=== PATIENT | female | born 1935 | race Caucasian/White ===

== ENCOUNTER 2017-09-11 00:48 | Emergency (ER) | payer OTHER, MEDICAID ==
[~2017-09-11] VITALS: Ht 170.2 cm; Wt 77.1 kg
[~2017-09-11 00:48] MED LIST: ASP81EC PO; MEGE40SU2 PO; SERT-138 PO
[2017-09-11 05:45] VITALS: BP 161/76
== END 2017-09-11 06:30 | disposition home or self-care (01) ==
LOC: ER 00:48 → EDUNIT# 00:48 → EDBD 00:48 → ER 06:30
DX: S39.012A Strain of muscle, fascia and tendon of lower back, initial encounter (principal); S53.402A Unspecified sprain of left elbow, initial encounter; M54.17 Radiculopathy, lumbosacral region; J45.909 Unspecified asthma, uncomplicated; R51 Headache; M19.90 Unspecified osteoarthritis, unspecified site; Z86.73 Personal history of transient ischemic attack (TIA), and cerebral infarction without residual deficits; Z88.6 Allergy status to analgesic agent; W19.XXXA Unspecified fall, initial encounter; Y93.89 Activity, other specified; Y99.8 Other external cause status; Y92.090 Kitchen in other non-institutional residence as the place of occurrence of the external cause
CPT/HCPCS: 70450; 72131; 73080; 93005

== ENCOUNTER 2017-11-10 10:27 | Emergency (ER) | payer OTHER, MEDICAID ==
[~2017-11-10] VITALS: Ht 162.6 cm; Wt 68.0 kg
[2017-11-10 11:02] LABS: Basophils # (auto) 0.1 uL; Basophils % (auto) 1.1 % (0.0-2.0); Eosinophils # (auto) 0.1 uL; Eosinophils % (auto) 1.7 % (0.0-7.0); Hemoglobin 11.8 g/dL (12.2-16.2); Lymphocytes # (auto) 0.8 uL; Lymphocytes % (auto) 16.7 % (10.0-50.0); Mean Corpuscular Hemoglobin 30.1 pg (28.0-32.0); Mean Corpuscular Hgb Conc. 33.8 g/dL (32.0-36.0); Mean Corpuscular Volume 89.2 fL (80.0-100.0); Mean Platelet Volume 7.6 fL (6.9-10.8); Monocytes # (auto) 0.5 uL; Monocytes % (auto) 9.3 % (0.0-12.0); Neutrophils # (auto) 3.6 uL; Neutrophils % (auto) 71.2 % (37.0-80.0); Platelet Count (auto) 177 10^3/uL (140-450); Red Cell Distribution Width 13.8 % (11.8-14.3); White Blood Cell 5.1 10^3/uL (4.4-10.8)
[2017-11-10 11:19] LABS: INR 0.97 (0.9-1.15); Partial Thromboplastin Time 21.6 sec (22.64-33.71); Prothrombin Time 10.6 sec (9.37-12.3)
[2017-11-10 11:30] LABS: Albumin 3.3 g/dL (3.4-5.0); Alkaline Phosphatase 59 U/L (45-117); Anion Gap 8 (5-15); Aspartate Aminotransferase 15 U/L (15-37); BUN/Creatinine Ratio 22.2; Bilirubin, Total 0.7 mg/dL (0.2-1.0); Blood Urea Nitrogen 24 mg/dL (7-18); Calcium 8.1 mg/dL (8.5-10.1); Carbon Dioxide 26 mmol/L (21-32); Chloride 106 mmol/L (98-107); GFR African American 63 mL/min; GFR Non-African American 52 mL/min; Glucose 88 mg/dL (74-106); Potassium 4.1 mmol/L (3.5-5.1); Sodium 140 mmol/L (136-145); Total Protein 6.7 g/dL (6.4-8.2)
[2017-11-10 15:07] VITALS: BP 136/89
== END 2017-11-10 16:07 | disposition home or self-care (01) ==
LOC: EDBD 10:27 → ER 10:27
DX: R42 Dizziness and giddiness (principal); D64.9 Anemia, unspecified; I48.91 Unspecified atrial fibrillation; M19.90 Unspecified osteoarthritis, unspecified site; J45.909 Unspecified asthma, uncomplicated; Z86.73 Personal history of transient ischemic attack (TIA), and cerebral infarction without residual deficits; Z90.710 Acquired absence of both cervix and uterus
CPT/HCPCS: 36415; 70450; 80053; 84484; 85025; 85610; 85730; 93005

== ENCOUNTER 2019-02-16 06:09 | Emergency (ER) | payer MEDICARE, MEDICAID ==
[~2019-02-16] VITALS: Ht 160 cm; Wt 64.9 kg
[~2019-02-16 06:09] MED LIST changes: -ASP81EC PO; -MEGE40SU2 PO
[2019-02-16] MEDS ORDERED: ACCU-CHEK COMFORT CURVE STRIP VI ONE (06:30)
[2019-02-16 07:37] LABS: Basophils # (auto) 0.1 uL; Basophils % (auto) 1.1 % (0.0-2.0); Eosinophils # (auto) 0.1 uL; Eosinophils % (auto) 1.8 % (0.0-7.0); Hematocrit 37.6 % (36.0-46.0); Hemoglobin 12.3 g/dL (12.2-16.2); Lymphocytes # (auto) 0.6 uL; Lymphocytes % (auto) 11.8 % (10.0-50.0); Mean Corpuscular Hemoglobin 29.3 pg (28.0-32.0); Mean Corpuscular Hgb Conc. 32.8 g/dL (32.0-36.0); Mean Corpuscular Volume 89.3 fL (80.0-100.0); Monocytes # (auto) 0.5 uL; Monocytes % (auto) 9.6 % (0.0-12.0); Neutrophils # (auto) 3.9 uL; Neutrophils % (auto) 75.7 % (37.0-80.0); Platelet Count (auto) 214 10^3/uL (140-450); Red Blood Cells 4.21 10^6/uL (4.0-5.20); Red Cell Distribution Width 13.9 % (11.8-14.3); White Blood Cell 5.2 10^3/uL (4.4-10.8)
[2019-02-16 07:57] LABS: Albumin 3.1 g/dL (3.4-5.0); Anion Gap 5 (5-15); Blood Urea Nitrogen 23 mg/dL (7-18); Calcium 8.3 mg/dL (8.5-10.1); Carbon Dioxide 27 mmol/L (21-32); Chloride 109 mmol/L (98-107); Glucose 81 mg/dL (74-106); Potassium 3.7 mmol/L (3.5-5.1); Sodium 141 mmol/L (136-145)
[2019-02-16 08:02] LABS: Alanine Aminotransferase 13 U/L (13-56); Alkaline Phosphatase 70 U/L (45-117); Aspartate Aminotransferase 17 U/L (15-37); BUN/Creatinine Ratio 22.5; Bilirubin, Total 0.5 mg/dL (0.2-1.0); GFR African American 67 mL/min; GFR Non-African American 55 mL/min; Total Protein 6.6 g/dL (6.4-8.2)
[2019-02-16 08:20] LABS: Urine WBC None Seen /hpf (0 - 5)
[2019-02-16 08:29] LABS: Urine Bacteria NONE SEEN /hpf (None Seen); Urine Blood Negative /uL (Negative); Urine Specific Gravity 1.007 (1.001-1.035)
[2019-02-16 08:44] LABS: Alcohol, Urine < 3.0 mg/dL (0-5); Amphetamine Screen, Urine NEGATIVE (NEGATIVE); Barbiturate Scree,Urine NEGATIVE (NEGATIVE); Benzodiazephine Screen, Urine NEGATIVE (NEGATIVE); Cannabinoid Screen, Urine NEGATIVE (NEGATIVE); Cocaine Screen, Urine NEGATIVE (NEGATIVE); Opiate Scree,Urine NEGATIVE (NEGATIVE); Phencyclidine Screen, Urine NEGATIVE (NEGATIVE)
[2019-02-16 09:29] VITALS: BP 137/80
== END 2019-02-16 09:46 | disposition home or self-care (01) ==
LOC: ER 06:09 → EDBD 06:09 → EDUNIT# 06:09 → ER 09:46
DX: R55 Syncope and collapse (principal); R42 Dizziness and giddiness; E16.2 Hypoglycemia, unspecified; J44.9 Chronic obstructive pulmonary disease, unspecified; I48.91 Unspecified atrial fibrillation; Z86.73 Personal history of transient ischemic attack (TIA), and cerebral infarction without residual deficits; Z90.710 Acquired absence of both cervix and uterus; Z88.8 Allergy status to other drugs, medicaments and biological substances
CPT/HCPCS: 36415; 71045; 80053; 80307; 81001; 82962; 84484; 85025; 93005

== ENCOUNTER 2019-03-29 21:43 | Inpatient (IN) | payer MEDICARE, MEDICAID ==
[~2019-03-29] VITALS: Ht 162.6 cm; Wt 65.6 kg
[2019-03-29 22:37] LABS: Basophils # (auto) 0.1 uL; Eosinophils # (auto) 0.1 uL; Eosinophils % (auto) 0.8 % (0.0-7.0); Hematocrit 34.4 % (36.0-46.0); Hemoglobin 11.6 g/dL (12.2-16.2); Lymphocytes # (auto) 0.7 uL; Lymphocytes % (auto) 10.6 % (10.0-50.0); Mean Corpuscular Hemoglobin 29.8 pg (28.0-32.0); Mean Corpuscular Hgb Conc. 33.8 g/dL (32.0-36.0); Mean Corpuscular Volume 88.4 fL (80.0-100.0); Monocytes # (auto) 0.7 uL; Monocytes % (auto) 10.7 % (0.0-12.0); Neutrophils # (auto) 5.2 uL; Neutrophils % (auto) 76.9 % (37.0-80.0); Platelet Count (auto) 183 10^3/uL (140-450); Red Blood Cells 3.89 10^6/uL (4.0-5.20); Red Cell Distribution Width 14.6 % (11.8-14.3); White Blood Cell 6.8 10^3/uL (4.4-10.8)
[2019-03-29 22:44] LABS: INR 0.99 (0.9-1.15); Partial Thromboplastin Time 25.4 sec (23.78-33.04); Prothrombin Time 10.6 sec (9.27-12.13)
[2019-03-29 22:46] LABS: Albumin 3.3 g/dL (3.4-5.0); BUN/Creatinine Ratio 25.2; Calcium 8.4 mg/dL (8.5-10.1); Potassium 3.7 mmol/L (3.5-5.1)
[2019-03-29 22:53] LABS: Bilirubin, Total 0.7 mg/dL (0.2-1.0); Total Protein 6.5 g/dL (6.4-8.2)
[2019-03-29 23:13] LABS: Urine Amorphous Crystal MOD /hpf (None Seen); Urine Bacteria MANY /hpf (None Seen); Urine Blood TRACE /uL (Negative); Urine Hyaline Cast FEW /lpf (0 - 2); Urine Mucus FEW (None Seen); Urine Specific Gravity 1.017 (1.001-1.035); Urine WBC 9 /hpf (0 - 5)
[2019-03-30] MEDS ORDERED: cefTRIAXone 1GM/50ML D5W 50 ML IV ONE ×2 (03:00→15:00)
[2019-03-30] MEDS ORDERED: SODIUM CHLORIDE 0.9% 1,000 ML IV ONE (05:13)
[2019-03-30] MEDS ORDERED: TEMAZEPAM 15 MG CAP PO PRN (06:45)
[2019-03-30] MEDS ORDERED: ACETAMINOPHEN 325 MG TAB PO PRN (06:45)
[2019-03-30] MEDS ORDERED: HYDROcodone-ACET 5/325MG TAB PO PRN (06:45)
[2019-03-30] MEDS ORDERED: ONDANSETRON HCL 4 MG/2 ML VIAL IV PRN (06:45)
[2019-03-30] MEDS: SODIUM CHLORIDE 0.9% 1,000 ML IV SCH ×2 (07:37→20:05)
[2019-03-30 08:00] VITALS: BP 106/59
--- NOTE | 2019-03-30 09:20 | NUR ---
PT ARRIVES UNIT IN STABLE CONDITION. ALERT AND ORIENTED ONLY TO NAME . UPDATE PT WITH POC. ORIENTED TO ROOM AND MADE COMFORTABLE IN BED. BED AT LOWEST POSITION. CALL LIGHT AND BELONGINGS WITHIN REACH. WILL CONT TO MONITOR.
[2019-03-30] MEDS: amLODIPine BESYLATE 5 MG TAB PO SCH (10:00)
[2019-03-30] MEDS: MEMANTINE HCL 5 MG TAB PO SCH (10:00)
[2019-03-30] MEDS: PANTOPRAZOLE 40 MG TAB PO SCH (10:01)
[2019-03-30] MEDS: ENOXAPARIN SOD 30 MG/0.3 ML SYRINGE SC SCH (10:01)
[2019-03-30 12:00] VITALS: BP 104/56
[2019-03-30 16:00] VITALS: BP 119/54
--- NOTE | 2019-03-30 19:08 | NUR ---
Opening Note Assumed care of patient, awake and alert X3. Bed is in lowest position, call light is within reach, bed alarm is on. Sitter is at bedside. No S/S of distress/SOB or pain. Instructed on POC and to call for assist PRN, will continue to monitor for changes Q1hr and PRN.
--- NOTE | 2019-03-30 19:40 | NUR ---
PT RESTING IN BED. NO S/S ACUTE DISTRESS NOTED.ENDORSED CARE TO NIGHT NURSE.
[2019-03-30 21:15] VITALS: BP 143/70
--- NOTE | 2019-03-31 02:17 | NUR ---
IV DC'd by patient from Left wrist after pulling out her IV. IV catheter was fully intact. Pressure dressing was applied to site.
--- NOTE | 2019-03-31 02:30 | NUR ---
IV insertion to LFA IV access obtained, via clean sterile technique by inserting 22 gauge catheter at the LFA after 2 attempt(s). IV secured properly. No trauma to site. Patient tolerated well.
[2019-03-31 05:42] VITALS: BP 134/75
[2019-03-31] MEDS: SODIUM CHLORIDE 0.9% 1,000 ML IV SCH ×2 (06:35→22:32)
--- NOTE | 2019-03-31 07:12 | NUR ---
Closing note Patient is resting in bed. No S/S of distress, SOB, or pain. Sitter is at bedside. Endorsed care to Deborah langston RN.
[2019-03-31 07:21] LABS: BUN/Creatinine Ratio 27.6; Calcium 7.5 mg/dL (8.5-10.1); Potassium 3.6 mmol/L (3.5-5.1)
--- NOTE | 2019-03-31 07:45 | NUR ---
OPENING NOTE OBSERVED PT RESTING IN BED, NO SOB/DISTRESS NOTED. PT AAO X 1, CONFUSED. ABLE TO FOLLOW SIMPLE COMMANDS. INCONTINENT OF BOWEL AND BLADDER, PT CLEANED AND PARTIAL LINEN CHANGE COMPLETED. PT REPOSITIONED FOR COMFORT. NO SKIN INTEGRITY ISSUES NOTED AT THIS TIME. BLE ELEVATED TO OFFSET PRESSURE. WILL CONTINUE TO TURN Q2H AND PRN. PT UPDATED ON POC, UNABLE TO VERBALIZE UNDERSTANDING. CALL LIGHT WITHIN REACH, FALL PRECAUTIONS IN PLACE. SITTER AT BEDSIDE. WILL CONTINUE TO MONITOR Q1H AND PRN. CONTINUE PT CARE.
--- NOTE | 2019-03-31 08:15 | NUR ---
AT BEDSIDE DR. CASTRO AT BEDSIDE. ORDERS RECEIVED TO CONTACT FAMILY FOR DC PREFERENCE. SPOKE TO RASHARD, PATIENTS DAUGHTER. RASHARD REQUESTING SNF. DR. CASTRO INFORMED.
--- NOTE | 2019-03-31 08:36 | NUR ---
ERGONOMICS TECHNICIAN SPOKE TO BROOKE GUERIN, REGARDING SNF PLACEMENT. UPDATED ON PT STATUS. PER NATANAEL COX MUST BE DC'D FOR 24 HOURS BEFORE PATIENT CAN BE DC'D. INFORMED NATANAEL ARIZMENDI DC'Tete. NUMBERS PROVIDED FOR FAXING ORDER. WILL SEND FAXES AT LATER TIME.
--- NOTE | 2019-03-31 08:52 | NUR ---
SNF PLACEMENT REQUIRED CLINICALS FAXED TO [facility], AND [facility].
[2019-03-31 09:00] VITALS: BP 144/73
[2019-03-31] MEDS: cefTRIAXone 1GM/50ML D5W 50 ML IV SCH (09:28)
[2019-03-31] MEDS: MEMANTINE HCL 5 MG TAB PO SCH (09:29)
[2019-03-31] MEDS: PANTOPRAZOLE 40 MG TAB PO SCH (09:29)
[2019-03-31] MEDS: ENOXAPARIN SOD 30 MG/0.3 ML SYRINGE SC SCH (09:29)
[2019-03-31] MEDS: amLODIPine BESYLATE 5 MG TAB PO SCH (09:30)
--- NOTE | 2019-03-31 12:44 | NUR ---
Nutrition Assessment/consult Notes please see attached link for complete assessment Est. Needs BW [id number] kcal (23-25 kcal/kgBW), 66-79 gms pro (1.0-1.2 gms/kgBW). Will continue to monitor pertinent labs and reassess nutrient need prn Addendum: 03/31/19 at [address] Amended: Links added.
[2019-03-31 13:00] VITALS: BP 138/74
[2019-03-31 17:00] VITALS: BP 136/73
[2019-03-31] MEDS: Ensure Enlive Vanilla 8oz Bottle PO SCH (17:55)
--- NOTE | 2019-03-31 19:10 | NUR ---
Opening Shift Note Assumed care of patient from day shift RN Deborah. Pt is awake and alert and oriented x3 with periods of confusion. No S/S of distress/SOB or pain. Safety maintained with bed rails upx2, locked and in lowest position with call leon within reach. Instructed on POC and to call for assist PRN, will continue to monitor for changes Q1hr and PRN.
--- NOTE | 2019-03-31 20:00 | NUR ---
PT REQUESTING TO SHOWER EDUCATED PT ABOUT RISK OF FALLING, OFFERED PATIENT BED BATH INSTEAD OF SHOWER. PATIENT VERBALIZED UNDERSTANDING, REQUESTING BED BATH. BED BATH PERFORMED, PATIENT CLEANED AND LINENS CHANGED BY LAURA BULL. NO S/S DISTRESS. WILL CONTINUE TO MONITOR.
[2019-03-31 22:35] VITALS: BP 125/62
[2019-04-01 05:08] VITALS: BP 157/87
[2019-04-01] MEDS: SODIUM CHLORIDE 0.9% 1,000 ML IV SCH (05:37)
--- NOTE | 2019-04-01 07:15 | NUR ---
OPENING NOTE OBSERVED PT SITTING UP IN BED. NO SOB/DISTRESS NOTED. PT REMAINS AAO X 1, CONFUSED. CALL LIGHT WITHIN REACH. FALL PRECAUTIONS IN PLACE. WILL CONTINUE TO MONITOR Q1H AND PRN. CONTINUE PT CARE.
[2019-04-01] MEDS: Ensure Enlive Vanilla 8oz Bottle PO SCH ×2 (07:57→18:15)
--- NOTE | 2019-04-01 08:23 | NUR ---
AT BEDSIDE/BRIDGE OPERATOR SLIP PAGED DR. CASTRO AT BEDSIDE DISCUSSING POC WITH PT. ORDERS RECEIVED TO CONTACT BUTT MAKER SS REGARDING STATUS OF TRANSFER. BUTT MAKER SS PAGED REGARDING SNF PLACEMENT. WAITING BUTT MAKER BACK.
--- NOTE | 2019-04-01 08:26 | NUR ---
TREE WRAPPER RETURNED PAGE TRUONG COX, RETURNED PAGE. BROOKE STATING SHE WILL CONTACT SNF'S AND CONTACT PRIMARY RN AT LATER TIME.
[2019-04-01] MEDS: amLODIPine BESYLATE 5 MG TAB PO SCH (09:09)
[2019-04-01] MEDS: MEMANTINE HCL 5 MG TAB PO SCH (09:10)
[2019-04-01] MEDS: PANTOPRAZOLE 40 MG TAB PO SCH (09:10)
[2019-04-01] MEDS: cefTRIAXone 1GM/50ML D5W 50 ML IV SCH (09:10)
[2019-04-01] MEDS: ENOXAPARIN SOD 30 MG/0.3 ML SYRINGE SC SCH (09:11)
[2019-04-01 09:27] VITALS: BP 119/56
--- NOTE | 2019-04-01 11:01 | NUR ---
SPOKE TO DIRECTOR OF EMPLOYER SERVICES RECEIVED PHONE CALL FROM BROOKE GUERIN. BROOKE REQUESTING CLINICALS BE RE-FAXED TO FACILITIES. ALL CLINICALS RE-FAXED. BROOKE REQUESTING FAMILY BE CONTACTED TO DETERMINE WHEN PT WAS LAST IN A SNF. SPOKE TO PATIENTS DAUGHTER, RASHARD. PER RASHARD, SHE BELIEVES PATIENT WAS TAKEN OUT OF LAST NURSING FACILITY (BELIEVES IT WAS [facility] ON FEBRUARY 04, 2019. PAGE OUT TO TRUONG TO INFORM.
--- NOTE | 2019-04-01 11:09 | NUR ---
TRUONG RETURNED PAGE BROOKE, RETURNED PAGE, INFORMED OF PATIENTS RECENT SNF DAYS. RBOOKE STATING WE WILL WAIT FOR RESPONSE FROM FACILITIES.
[2019-04-01 12:54] VITALS: BP 116/66
--- NOTE | 2019-04-01 12:55 | NUR ---
SPOKE TO PLASTIC CUTTER RECEIVED PHONE CALL FROM BROOKE GUERIN. BROOKE STATING SHE STILL HAS NOT RECEIVED RESPONSE FROM ANY OF SNF'S THAT CLINICALS WERE FAXED TO. SUGGESTING SNF'S BE CONTACTED FOR POSSIBLE ALTERNATIVE FAX NUMBER. CONTACTED ALL 3 FACILITIES. ALEX DIAZ AND JANAE ABLE TO PROVIDE/SUGGEST ALTERNATIVE FAX NUMBERS FOR CLINICALS TO BE FAXED TO. CLINICALS RESENT TO : [phone] (ALEX DIAZ) AND [phone] (JANAE).
--- NOTE | 2019-04-01 13:43 | NUR ---
SPOKE TO CLOUD AUTOMATION TESTER RECEIVED PHONE CALL FROM CM. BROOKE COX STATING [facility] IS TRYING TO GET INTO CONTACT WITH PATIENTS FAMILY, BUT THEY HAVE BEEN UNSUCCESSFUL. CONTACT NUMBER FOR PATIENTS DAUGHTER AND SON PROVIDED.
[2019-04-01 13:54] VITALS: BP 116/59
--- NOTE | 2019-04-01 14:08 | NUR ---
SPOKE TO TREASURY MANAGEMENT SALES CONSULTANT/MD RECEIVED PHONE CALL FROM BROOKE GUERIN. BROOKE STATING THAT PT WILL NOT BE DC'D TODAY BECAUSE SNF CANNOT VERIFY HOW MANY REMAINING NURSING DAYS PATIENT HAS. CALLED DR. CASTRO TO INFORM. CALLED PATIENTS DAUGHTERRASHARD TO INFORM. VERBALIZED UNDERSTANDING.
--- NOTE | 2019-04-01 18:27 | NUR ---
ROUNDS PT SITTING UP IN BED. NO SOB/DISTRESS OR OBSERVABLE SIGNS OF PAIN NOTED AT THIS TIME. CALL LIGHT WITHIN REACH. FALL PRECAUTIONS IN PLACE.
--- NOTE | 2019-04-01 19:10 | NUR ---
Opening Shift Note Assumed care of patient from day shift RN Deborah. Pt is awake and alert and oriented x1 to self only, with some periods of clarity. No S/S of distress/SOB or pain. Safety maintained with bed rails upx2, locked and in lowest position with call leon within reach. Instructed on POC and to call for assist PRN, will continue to monitor for changes Q1hr and PRN.
[2019-04-01 22:36] VITALS: BP 149/78
[2019-04-02] MEDS: SODIUM CHLORIDE 0.9% 1,000 ML IV SCH ×2 (01:25→16:45)
[2019-04-02 06:00] VITALS: BP 147/75
--- NOTE | 2019-04-02 07:40 | NUR ---
Opening Shift Note Assumed care of patient, awake and alert but oriented x1. No S/S of distress/SOB or pain. Instructed on POC and to call for assist PRN, will continue to monitor for changes Q1hr and PRN. Bed in lowest position and locked, call light within reach.
--- NOTE | 2019-04-02 07:42 | NUR ---
O/C note: KENJI Cabrera about pt needing snf, instructed to fax [facility] packet to [facility]. I called Shanae at this time. I called Shanae again 2 hrs later since since she was to get back to me from previous call and had to leave message to see if they were accepting pt. I called [facility] and [facility] at appox 1300 hrs and asked if they looked at snf packet . All facilities stated they had not received packet. I had Deborah resend packet. At 1320 Shanae informed me that she was trying to contact daughter and was unsuccessful. I called Deborah the get phone # for son and daughter and called Shanae back to inform her. Shanae stated pt had just came out of snf on February 04 and that she could not check medicare days until tuesday. Shanae stated she would take pt if she had 10days or more of medicare days.
--- NOTE | 2019-04-02 07:52 | NUR ---
added to personal financial planner note. Pt was at [facility]
[2019-04-02] MEDS: Ensure Enlive Vanilla 8oz Bottle PO SCH ×2 (08:23→18:12)
[2019-04-02 08:45] VITALS: BP 137/72
[2019-04-02] MEDS: amLODIPine BESYLATE 5 MG TAB PO SCH (09:13)
[2019-04-02] MEDS: MEMANTINE HCL 5 MG TAB PO SCH (09:13)
[2019-04-02] MEDS: PANTOPRAZOLE 40 MG TAB PO SCH (09:13)
[2019-04-02] MEDS: cefTRIAXone 1GM/50ML D5W 50 ML IV SCH (09:14)
[2019-04-02] MEDS: ENOXAPARIN SOD 40 MG/0.4 ML SYRINGE SC SCH (09:14)
--- NOTE | 2019-04-02 09:45 | NUR ---
PHYSICAL THERAPY PHYSICAL THERAPY ASSISTING PATIENT UP TO CHAIR.
--- NOTE | 2019-04-02 11:46 | NUR ---
CASE MANAGEMENT CALLED REGINE IN CASE MANAGEMENT FOR TRANSFER TO SNF UPDATE. MESSAGE LEFT. WAITING FOR CALL BACK.
[2019-04-02 12:09] VITALS: BP 139/78
--- NOTE | 2019-04-02 14:31 | NUR ---
I faxed SNF order, H&P and PT notes to [facility].
--- NOTE | 2019-04-02 14:35 | NUR ---
assessment Patient is a 83 year old female who is confused. Per sudha Bentley prior to admission patient lived home alone and functioned with assistance of her daily caregiver. Per Mc patient has a fww and a scooter. I informed Mc of patients ss consult for SNF placement. I also informed Mc that patient has no Medicare days left, but I could get auth from [facility]. Per Mc he wants SNF placement for patient. Per Mc patients discharge plan after SNF is to return home with her caregiver. MD order has been sent to [facility], [facility] and [facility]. [facility] and [facility] cannot accept patient. Per Veena at [facility] she has accepted patient to room [address] Elizabeth is the accepting MD. Daina field case manager is getting auth for [facility] and for transportation. Mc verbalized understanding and agreed to discharge plan to [facility]. Addendum: 04/02/19 at 1441 by Betzy LANGSTON Amended: Links added.
[2019-04-02 15:26] VITALS: BP 139/78
--- NOTE | 2019-04-02 16:03 | NUR ---
Called [facility] discharge nurse Chilango (clinical information/order previously sent) regarding request for authorization for SNF as well as transportation-awaiting return call.
--- NOTE | 2019-04-02 16:09 | NUR ---
I called Denise at [facility] [phone] and left message asking for authorization for SNF as well as transportation-awaiting return call.
--- NOTE | 2019-04-02 16:30 | NUR ---
I spoke with Chilango at [facility]-authorization for [facility] is [id number] and the authorization for [facility] to transport is [id number].
[2019-04-02 16:45] VITALS: BP 136/74
--- NOTE | 2019-04-02 18:36 | NUR ---
End of shift PATIENT RESTING IN BED. NO S/S OF DISTRESS, INSTRUCTED PT TO CALL PRN. BED IN LOWEST LOCKED POSITION, CALL LIGHT IN REACH. ENDORSED CARE TO NOC RN
--- NOTE | 2019-04-02 18:58 | NUR ---
o/c note Kelsey trejo RN called and wanted to know about transporting pt to snf. Informed her auth for transport is in CM notes and to call [facility] to let them know pt is ready to go to snf and to give auth,rm #.
--- NOTE | 2019-04-02 19:00 | NUR ---
CALLED [facility] CALLED [facility] REGARDING PATIENT SOLE POLISHER. OPERATIONAL METEOROLOGIST STATED PATIENT DOES NOT QUALIFY FOR AMBULANCE TRANSPORT. PAGED CAR MECHANIC REEXAMINER. WAITING FOR CALL BACK.
--- NOTE | 2019-04-02 19:43 | NUR ---
TRANSPORT: CALLED [facility] RE: TRANSPORT,KAREN DE SOUZA PT DOES NOT HAVE ANY CRITERIA TO QUALIFY FOR [facility] TRANSPORT.HE STATED PT CAN BE TRANSPORTED TO A [facility].
--- NOTE | 2019-04-02 20:05 | NUR ---
open note assumed care of pt. upon entering room, pt eyes are closed, breathing is even and unlabored. pt is on room air. no distress noted. sitter present at bedside. will return at later time to update pt on plan of care. call light in reach. will round q1hr and prn.
[2019-04-02 22:00] VITALS: BP 141/77
[2019-04-03 04:05] VITALS: BP 136/68
[2019-04-03] MEDS: SODIUM CHLORIDE 0.9% 1,000 ML IV SCH (04:10)
--- NOTE | 2019-04-03 07:40 | NUR ---
opening patient awake in bed, bed in lowest position, call light within reach. Sitter at bedside, no distress noted at this time Will f/u with morning assessment
--- NOTE | 2019-04-03 08:17 | NUR ---
nurse note spoke with case management, noted the slate picker time for transport for patient with be at 10 AM phone number [phone] to room 101 bed [address] sarmad Zapata is giving report to accepting RN at this time
[2019-04-03 08:30] VITALS: BP 108/53
--- NOTE | 2019-04-03 08:30 | NUR ---
nurse note elijah, called and gave report to nurse at [facility], will advise he make a note as well
[2019-04-03] MEDS: PANTOPRAZOLE 40 MG TAB PO SCH (09:08)
[2019-04-03] MEDS: cefTRIAXone 1GM/50ML D5W 50 ML IV SCH (09:08)
[2019-04-03] MEDS: MEMANTINE HCL 5 MG TAB PO SCH (09:08)
[2019-04-03] MEDS: ENOXAPARIN SOD 40 MG/0.4 ML SYRINGE SC SCH (09:09)
--- NOTE | 2019-04-03 09:17 | NUR ---
nurse note spoke with amrk at [facility], she states the facility does not accept sitter patients. however i told her that the patient most likely would not need a sitter there, she is not combative or getting out of bed inappropriately. She states if the sitter is discontinued, await 24 hours and then we can try again to transfer. will report all of the following to the doctor, and await new orders
--- NOTE | 2019-04-03 09:24 | NUR ---
re-assessment Per Chilango at [facility]-authorization for [facility] is [id number] and the authorization for [facility] to transport is [id number]. Kishan at [facility] has been provided with auth. [facility] will transport patient to [facility] at 1130am. Emily PHILLIP notified. Patients maria de jesus Bentley has been notified and agrees to discharge plan to [facility]. Addendum: 04/03/19 at 1627 by Betzy LANGSTON Amended: Links added.
[2019-04-03] MEDS: amLODIPine BESYLATE 5 MG TAB PO SCH (09:39)
--- NOTE | 2019-04-03 11:34 | NUR ---
[facility] spoke with nain the receiving nurse, confirmed the patient's transfer doctor kamryn noted he requested the sitter to be discontinued 3 days ago, which was a concern for the SNF everything is ready to go, awaiting transport team , will discontinue IV once transport is here at the hospital
[2019-04-03 12:00] VITALS: BP 134/83
--- NOTE | 2019-04-03 12:00 | NUR ---
CLOSING Discharge instructions given as ordered. All questions and concerns addressed. Patient verbalized understanding. IV removed with catheter intact, pressure dressing applied. Medication reconciliation form completed and copy given to patient. Report given to at [ANGELY PHILLIP ]. Patient transported by [[facility]] with all personal belongings. No distress noted at time of departure.
== END 2019-04-03 12:00 | DRG 70 ==
LOC: EDBD 21:43 → ER 21:49 → OVERFLOW 03-30 06:55 → CENTRAL 03-30 08:47
PROVIDERS: ADMIT Nurse Practitioner; ATTEND Family Medicine
DX: G93.41 Metabolic encephalopathy (principal); N17.0 Acute kidney failure with tubular necrosis; N39.0 Urinary tract infection, site not specified; E86.0 Dehydration; R62.7 Adult failure to thrive; E88.09 Other disorders of plasma-protein metabolism, not elsewhere classified; I12.9 Hypertensive chronic kidney disease with stage 1 through stage 4 chronic kidney disease, or unspecified chronic kidney disease; N18.9 Chronic kidney disease, unspecified; J44.9 Chronic obstructive pulmonary disease, unspecified; I48.91 Unspecified atrial fibrillation; F41.9 Anxiety disorder, unspecified; M19.90 Unspecified osteoarthritis, unspecified site; F02.80 Dementia in other diseases classified elsewhere, unspecified severity, without behavioral disturbance, psychotic disturbance, mood disturbance, and anxiety; I73.9 Peripheral vascular disease, unspecified; G30.9 Alzheimer's disease, unspecified; Z75.1 Person awaiting admission to adequate facility elsewhere; Z80.1 Family history of malignant neoplasm of trachea, bronchus and lung; Z86.73 Personal history of transient ischemic attack (TIA), and cerebral infarction without residual deficits; Z90.710 Acquired absence of both cervix and uterus; Z88.8 Allergy status to other drugs, medicaments and biological substances; Z90.49 Acquired absence of other specified parts of digestive tract; Z90.722 Acquired absence of ovaries, bilateral
CPT/HCPCS: 36415; 70450; 71045; 80048; 80053; 81001; 83605; 83880; 84484; 85025; 85610; 85730; 87040; 87086; 97110; 97530; G0378; J0696